=== PATIENT | female | born 1975 | race Hispanic/Latino ===

== ENCOUNTER 2020-03-04 20:20 | Emergency (ER) | payer BC ==
[2020-03-04] MEDS ORDERED: HYDROCODONE/APAP 10/325 TAB ONE (21:00)
[2020-03-04] MEDS ORDERED: KETOROLAC 30 MG/ML INJ ONE (21:01)
--- NOTE | 2020-03-04 22:28 | ER ---
Nurse's Notes [facility] Name: Nicol Infante Age: 44 yrs Sex: Female : 1975 Arrival Date: 03/04/2020 Time: 20:27 Bed 20 Private MD: Diagnosis: Pain in left shoulder-possible injury to rotator cuff Presentation: 03/04 20:36 Chief complaint: Patient states: i had a seizure last December at work and passed out had, mg2 my left shoulder was bruised that time. today i felt my left shoulder in hurting and my fingers are tingling. Coronavirus screen: Client denies travel out of the [place] in the last 14 days. At this time, the client does not indicate any symptoms associated with coronavirus-19. Ebola Screen: No symptoms or risks identified at this time. Initial Sepsis Screen: Does the patient meet any 2 criteria? No. Patient's initial sepsis screen is negative. Does the patient have a suspected source of infection? No. Patient's initial sepsis screen is negative. Risk Assessment: Do you want to hurt yourself or someone else?. Onset of symptoms was March 04, 2020. 20:36 Method Of Arrival: Ambulatory mg2 20:36 Acuity: ROSE 4 mg2 Historical: - Allergies: 20:38 No Known Allergies; mg2 - Home Meds: 20:38 Keppra 1,000 mg Oral tab [Active]; mg2 - PMHx: 20:38 Seizures; mg2 - PSHx: 20:38 None; mg2 - Immunization history:: Flu vaccine status is unknown. - Social history:: Smoking status: Patient denies any tobacco usage or history of. Patient uses alcohol, occasionally. Patient/guardian denies using street drugs, IV drugs. Screenin:55 Abuse screen: Denies threats or abuse. Nutritional screening: No deficits noted. ea Tuberculosis screening: No symptoms or risk factors identified. Fall Risk None identified. Assessment: 20:57 General: Appears uncomfortable, Behavior is appropriate for age. Pain: Complains of ea pain in anterior aspect of left shoulder. Neuro: Level of Consciousness is awake, alert, obeys commands. Cardiovascular: Patient's skin is warm and dry. Respiratory: Airway is patent Respiratory effort is even, unlabored, Respiratory pattern is regular, symmetrical. Derm: Skin is pink, warm \T\ dry. 21:42 Reassessment: Patient and/or family updated on plan of care and expected duration. Pain ea level reassessed. Patient is alert, oriented x 3, equal unlabored respirations, skin warm/dry/pink. 22:44 Reassessment: Patient and/or family updated on plan of care and expected duration. Pain ea level reassessed. Patient is alert, oriented x 3, equal unlabored respirations, skin warm/dry/pink. Discharge instruction given to patient, verbalized the understanding of instruction. Pt left ED ambulatory tolerating well. Family awaiting outside ED for transport home. Vital Signs: 20:36 BP 160 / 108; Pulse 80; Resp 18; Temp 98.3; Pulse Ox 100% on R/A; Weight 126.1 kg; mg2 Height 5 ft. 3 in. (160.02 cm); Pain 10/10; 21:42 BP 142 / 80; Pulse 78; Resp 18; Pulse Ox 98% ; ea 20:36 Body Mass Index 49.24 (126.10 kg, 160.02 cm) mg2 ED Course: 20:27 Patient arrived in ED. cf2 20:29 Torres Mullen, PRESLEY is PHCP. pm1 20:29 Kostas Camarena MD is Attending Physician. pm1 20:37 Triage completed. mg2 20:37 Arm band placed on. mg2 20:46 Giana Silver, THOMAS is Primary Nurse. ea 20:55 Patient has correct armband on for positive identification. Bed in low position. Call ea light in reach. Side rails up X2. 21:49 Shoulder Left (2 View) XRAY In Process Unspecified. EDMS 22:44 No provider procedures requiring assistance completed. Patient did not have IV access ea during this emergency room visit. Administered Medications: 20:53 Drug: TORadol 60 mg Route: IM; Site: right gluteus; ea 22:29 Follow up: Response: No adverse reaction ea 20:54 Drug: [place] 10 mg-325 mg 1 tabs {Note: RASS 0.} Route: PO; ea 22:29 Follow up: Response: No adverse reaction; Pain is decreased ea Outcome: 22:28 Discharge ordered by MD. pm1 22:44 Condition: stable ea 22:44 Discharge instructions given to patient, Instructed on discharge instructions, follow up and referral plans. medication usage, Demonstrated understanding of instructions, follow-up care, medications, Prescriptions given X 1. 22:44 Discharged to home ambulatory, with family. ea 22:45 Patient left the ED. gretchen Signatures: Dispatcher [employer] EDMS Torres Mullen, PRESLEY BUTT PRESSER pm1 Giana Silver RN RN Victor Manuel Carson RN RN [facility] [place] Evangelista Ly 2
--- NOTE | 2020-03-04 22:28 | EDPHYS ---
Physician Documentation [facility] Name: Nicol Infante Age: 44 yrs Sex: Female : 1975 Arrival Date: 03/04/2020 Time: 20:27 Bed 20 Private MD: ED Physician Kostas Camarena HPI: 03/04 20:41 This 44 yrs old Female presents to ER via Ambulatory with complaints of pm1 Shoulder Pain, Numbness. 20:41 The patient or guardian complains of pain. left shoulder. Context: resulted from a pm1 fall, The patient reports no decreased range of motion. The patient reports no obvious deformity. Onset: The symptoms/episode began/occurred 2 month(s) ago. Modifying factors: the symptoms are alleviated by remaining still, The symptoms are aggravated by lifting weight, movement. Associated signs and symptoms: Pertinent positives: Numbness in left arm Pertinent negatives: chest pain, shortness of breath. Severity of symptoms: in the emergency department the symptoms are unchanged. The patient has not recently seen a physician. Patient had a seizure two months ago and she fell on her left shoulder. Since then she has been having pain to her left shoulder and numbness to the left arm. Historical: - Allergies: 20:38 No Known Allergies; mg2 - Home Meds: 20:38 Keppra 1,000 mg Oral tab [Active]; mg2 - PMHx: 20:38 Seizures; mg2 - PSHx: 20:38 None; mg2 - Immunization history:: Flu vaccine status is unknown. - Social history:: Smoking status: Patient denies any tobacco usage or history of. Patient uses alcohol, occasionally. Patient/guardian denies using street drugs, IV drugs. ROS: 20:41 Constitutional: Negative for fever, chills, and weight loss, Cardiovascular: Negative pm1 for chest pain, palpitations, and edema, Respiratory: Negative for shortness of breath, cough, wheezing, and pleuritic chest pain, Abdomen/GI: Negative for abdominal pain, nausea, vomiting, diarrhea, and constipation, Back: Negative for injury and pain. 20:41 Skin: Negative for injury, rash, and discoloration. 20:41 MS/extremity: Positive for pain, of the anterior aspect of left shoulder, Negative for decreased range of motion, deformity. 20:41 Neuro: Positive for numbness, of the left arm, Negative for headache, weakness. Exam: 20:41 Constitutional: This is a well developed, well nourished patient who is awake, alert, pm1 and in no acute distress. Head/Face: Normocephalic, atraumatic. Neck: Trachea midline, no thyromegaly or masses palpated, and no cervical lymphadenopathy. Supple, full range of motion without nuchal rigidity, or vertebral point tenderness. No Meningismus. 20:41 Back: No spinal tenderness. No costovertebral tenderness. Full range of motion. Skin: Warm, dry with normal turgor. Normal color with no rashes, no lesions, and no evidence of cellulitis. 20:41 Cardiovascular: Exam negative for acute changes, Rate: normal, Rhythm: regular, Pulses: no pulse deficits are appreciated. 20:41 Respiratory: Exam negative for acute changes, respiratory distress, shortness of breath. 20:41 Musculoskeletal/extremity: Extremities: grossly normal except: noted in the tenderness to supraspinatus insertion point: There is no evidence of decreased ROM, deformity. 20:41 Neuro: Exam negative for acute changes, Orientation: is normal, Mentation: is normal, Motor: is normal, moves all fours. Vital Signs: 20:36 BP 160 / 108; Pulse 80; Resp 18; Temp 98.3; Pulse Ox 100% on R/A; Weight 126.1 kg; mg2 Height 5 ft. 3 in. (160.02 cm); Pain 10/10; 21:42 BP 142 / 80; Pulse 78; Resp 18; Pulse Ox 98% ; ea 20:36 Body Mass Index 49.24 (126.10 kg, 160.02 cm) mg2 MDM: 20:34 Patient medically screened. pm1 22:26 Data reviewed: vital signs. Data interpreted: Pulse oximetry: on room air is 98 %. pm1 Interpretation: normal. Counseling: I had a detailed discussion with the patient and/or guardian regarding: the historical points, exam findings, and any diagnostic results supporting the discharge/admit diagnosis, radiology results, the need for outpatient follow up, a orthopedic surgeon, MRI and further evaluation and treatment, to return to the emergency department if symptoms worsen or persist or if there are any questions or concerns that arise at home. 03/04 20:41 Order name: Shoulder Left (2 View) XRAY pm1 03/04 22:28 Order name: Sling; Complete Time: 22:43 pm1 Administered Medications: 20:53 Drug: TORadol 60 mg Route: IM; Site: right gluteus; ea 22:29 Follow up: Response: No adverse reaction ea 20:54 Drug: [place] 10 mg-325 mg 1 tabs {Note: RASS 0.} Route: PO; ea 22:29 Follow up: Response: No adverse reaction; Pain is decreased ea Disposition: 03/05 07:01 Co-signature as Attending Physician, Kostas Camarena MD I agree with the assessment and tw4 plan of care. Chart complete. Chart complete. Disposition: 03/04/20 22:28 Discharged to Home. Impression: Pain in left shoulder - possible injury to rotator cuff. - Condition is Stable. - Discharge Instructions: Rotator Cuff Injury, Shoulder Pain, How to Use a Sling. - Prescriptions for Tylenol- Codeine #3 300-30 mg Oral Tablet - take 2 tablets by ORAL route every 6 hours As needed; 20 tablet. - Medication Reconciliation Form, Thank You Letter, Antibiotic Education, Prescription Opioid Use, Work release form form. - Follow up: Emergency Department; When: As needed; Reason: Worsening of condition. Follow up: Private Physician; When: 2 - 3 days; Reason: Recheck today's complaints, Continuance of care, Re-evaluation by your physician. - Problem is new. - Symptoms have improved. Signatures: Dispatcher [employer] EDMS Torres Mullen, PRESLEY WELFARE MANAGER pm1 Giana Silver RN RN ea Wadley, Terrence, MD MD tw4 Victor Manuel Cavanaugh RN RN mg2 Corrections: (The following items were deleted from the chart) 03/04 22:29 22:28 03/04/2020 22:28 Discharged to Home. Impression: Pain in left shoulder. Condition pm1 is Stable. Forms are Medication Reconciliation Form, Thank You Letter, Antibiotic Education, Prescription Opioid Use. Follow up: Emergency Department; When: As needed; Reason: Worsening of condition. Follow up: Private Physician; When: 2 - 3 days; Reason: Recheck today's complaints, Continuance of care, Re-evaluation by your physician. Problem is new. Symptoms have improved. pm1 22:45 22:29 03/04/2020 22:28 Discharged to Home. Impression: Pain in left shoulder - possible ea injury to rotator cuff. Condition is Stable. Discharge Instructions: Shoulder Pain, How to Use a Sling, Rotator Cuff Injury. Forms are Medication Reconciliation Form, Thank You Letter, Antibiotic Education, Prescription Opioid Use. Follow up: Emergency Department; When: As needed; Reason: Worsening of condition. Follow up: Private Physician; When: 2 - 3 days; Reason: Recheck today's complaints, Continuance of care, Re-evaluation by your physician. Problem is new. Symptoms have improved. pm1
--- NOTE | 2020-03-05 08:08 | RAD REPORT ---
EXAM DESCRIPTION: RAD - Shoulder Left 2 View - 03/04/2020 9:49 pm CLINICAL HISTORY: PAIN, fall, trauma to left shoulder COMPARISON: Shoulder Left 2 View dated 09/30/2012 TECHNIQUE: Internal and external rotation views of the left shoulder were obtained. FINDINGS: There is no fracture or dislocation. Slight widening of the AC joint is similar to compari son. Degenerative changes are present along the undersurface the acromion at the head of the clavicle , progressive from 2013. Acromial humeral joint space reduced slightly. No soft tissue calcifications or suspicious soft tissue finding. 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 No fracture, dislocation or acute finding.
[2020-03-05 19:41] VITALS: TEMP 98.3
[2020-03-05 19:43] VITALS: BP 142/80; O2SAT 98
== END 2020-03-04 22:45 | disposition home or self-care (01) ==
LOC: ER 20:20
DX: M25.512 Pain in left shoulder (principal); G40.909 Epilepsy, unspecified, not intractable, without status epilepticus; W19.XXXA Unspecified fall, initial encounter; Y93.89 Activity, other specified; Y92.9 Unspecified place or not applicable
CPT/HCPCS: 96372; 99283

== ENCOUNTER 2020-11-10 13:01 | Emergency (ER) | payer BC, OTHER ==
--- OUTSIDE RECORDS SUMMARY | 2020-11-10 13:05 | XMS REPORT | Continuity of Care Document ---
:1975 [address] [facility] t Address [address] [place] [address] Care Team Providers Name Role Phone Pcp, Does Not Have A Primary Care Physician Jesus GUEVARA Attending Clinician Donna Triana MA Attending Clinician Unavailable Payers Payer Name Policy Type Policy Effective Date Expiration Date Sour ce Number AETNAAETNA [id number] [id number] [facility] dical /[facility] Problems Condition Condition Condition Status Onset Resolution Last Treating Co mments Source Name Details Category Date Date Treatment Clinician Date Stress Stress Disease Active Univers incontinen incontinen 4-11 it y of ce ce 00:00: [place] 00 [facility] Abnormal Abnormal Disease Active Unive rs uterine uterine 4-11 ity of bleeding bleeding 00:00: [place] (AUB) (AUB) 00 [facility] Allergies, Adverse Reactions, Alerts This patient has no known allergies or adverse reactions. Social History Social Habit Start Date Stop Date Quantity Comments Source Exposure to Not sure [facility] SARS-CoV-2 [facility] (event) [place] Tobacco use and 2020-11-02 2020-11-02 Never used Universit y of exposure 00:00:00 00:00:00 [facility] Alcohol intake 2020-11-02 2020-11-02 Current drinker Unive rsity of 00:00:00 00:00:00 of alcohol [facility] (finding) [place] Alcohol Comment 2020-10-04 2020-10-04 rarely Universit y of 00:00:00 00:00:00 [facility] Sex Ass[birth year] Universit y of 00:00:00 00:00:00 [facility] Smoking Status Start Date Stop Date Source Never smoker [facility] Medications Ordered Filled Start Stop Current Ordering Indication Dosage Frequency Signature Comments Components Source Medication Medication Date Date Medication? Clinician (SIG) Name Name herson Yes Abnormal .35mg Take 1 Univers ne 0.35 mg 5-06 uterine tablet by i ty of tablet 00:00: bleeding mouth [place] 00 (AUB) daily. [facility] noresergendro 2020- No Abnormal .35mg Take 1 Univers ne 0.35 mg 5-06 05-07 uterine tablet by ity of tablet 00:00: 00:00 bleeding mouth [place] 00 :00 (AUB) daily. Medical Branch norethindro 2020- No Abnormal .35mg Take 1 Univers ne 0.35 mg 5-06 05-07 uterine tablet by ity of tablet 00:00: 00:00 bleeding mouth [place] 00 :00 (AUB) daily. Medical Branch levETIRAcet Yes 1000mg Take 1,000 Univers am 1,000 mg 3-28 mg by ity of tablet 00:00: mouth 2 [place] (two) Medical times Branch daily. levETIRAcet Yes 1000mg Take 1,000 Univers am 1,000 mg 3-28 mg by ity of tablet 00:00: mouth 2 [place] (two) Medical times Branch daily. levETIRAcet Yes 1000mg Take 1,000 Univers am 1,000 mg 3-28 mg by ity of tablet 00:00: mouth 2 [place] (two) Medical times Branch daily. OXTELLAR XR Yes 1{tbl} Take 1 Un [place] 300 mg Tb24 1-22 tablet by ity of 00:00: mouth at [place] [address] bedtime. Medical Branch OXTELLAR XR Yes 1{tbl} Take 1 Un [place] 300 mg Tb24 1-22 tablet by ity of 00:00: mouth at [place] [address] bedtime. Medical Branch OXTELLAR XR Yes 1{tbl} Take 1 Un [place] 300 mg Tb24 1-22 tablet by ity of 00:00: mouth at [place] 00 bedtime. Medical Branch Vital Signs Vital Name Observation Time Observation Value Comments Source Systolic blood 2020-11-01 13:37:00 139 mm[Hg] Univer sity of pressure [facility] Diastolic blood 2020-11-01 13:37:00 81 mm[Hg] Unive rsity of [facility] Heart rate 2020-11-01 13:37:00 69 /min [facility] Body temperature 2020-11-01 13:37:00 36.61 [facility] rate 2020-11-01 13:37:00 18 /min [facility] Body height 2020-11-01 13:37:00 160 cm [facility] Body weight 2020-11-01 13:37:00 128.912 kg [facility] BMI 2020-11-01 13:37:00 50.34 kg/m2 [facility] Oxygen saturation in 2020-11-01 13:37:00 98 /min [facility] Arterial blood by [facility] Pulse oximetry Branch Procedures This patient has no known procedures. Plan of Care Planned Activity Planned Date Details Comments Source Future Scheduled 2023-10-05 Screening for [facility] Test 00:00:00 malignant neoplasm Medical B ranch of cervix (procedure) [code = 033493424] Future Scheduled 2023-10-05 Screening for [facility] Test 00:00:00 malignant neoplasm Medical [facility] of cervix (procedure) [code = [id number]] Future Scheduled 2023-10-05 Screening for [facility] Test 00:00:00 malignant neoplasm [facility] of cervix (procedure) [code = [id number]] Future Scheduled 2021-10-19 Screening for [facility] Test 00:00:00 malignant neoplasm [facility] of breast (procedure) [code = [id number]] Future Scheduled 2021-10-19 Screening for [facility] Test 00:00:00 malignant neoplasm Medical B [facility] of breast (procedure) [code = [id number]] Future Scheduled 2021-10-19 Screening for [facility] Test 00:00:00 malignant neoplasm Medical B [facility] of breast (procedure) [code = [id number]] Future Scheduled 2021-10-04 Depression screening [facility] [place] Test 00:00:00 (procedure) [code = Medical Branch [id number]] Future Scheduled 2021-10-04 Depression screening [facility] [place] Test 00:00:00 (procedure) [code = Medical Branch [id number]] Future Scheduled 2021-10-04 Depression screening [facility] [place] Test 00:00:00 (procedure) [code = Medical Branch [id number]] Future Scheduled 2021-02-27 INFLUENZA VACCINE [facility] [place] Test 00:00:00 (Season Ended) [code Medical Branch = INFLUENZA VACCINE (Season Ended)] Future Scheduled 2021-02-27 INFLUENZA VACCINE [facility] [place] Test 00:00:00 (Season Ended) [code Medical Branch = INFLUENZA VACCINE (Season Ended)] Future Scheduled 2021-02-27 INFLUENZA VACCINE Univer sity [facility] Test 00:00:00 (Season Ended) [code Medical Branch = INFLUENZA VACCINE (Season Ended)] Future Scheduled 1995-10-21 DTaP,Tdap,and Td Univers ity [facility] Test 00:00:00 Vaccines (1 - Tdap) Medical Branch [code = DTaP,Tdap,and Td Vaccines (1 - Tdap)] Future Scheduled 1995-10-21 DTaP,Tdap,and Td Univers ity [facility] Test 00:00:00 Vaccines (1 - Tdap) Medical Branch [code = DTaP,Tdap,and Td Vaccines (1 - Tdap)] Future Scheduled 1995-10-21 DTaP,Tdap,and Td Univers ity [facility] Test 00:00:00 Vaccines (1 - Tdap) Medical Branch [code = DTaP,Tdap,and Td Vaccines (1 - Tdap)] Future Scheduled 1994 Hepatitis C [facility] Test 00:00:00 screening Medical Branch (procedure) [code = [id number]] Future Scheduled 1994 Hepatitis C [facility] Test 00:00:00 screening Medical Branch (procedure) [code = [id number]] Future Scheduled 1994 Hepatitis C [facility] Test 00:00:00 screening Medical Branch (procedure) [code = [id number]] Future Scheduled 1992 SARS-CoV-2 [facility] Test 00:00:00 (COVID-19) Vaccine Medical [facility] (1) [code = SARS-CoV-2 (COVID-19) Vaccine (1)] Future Scheduled 1992 SARS-CoV-2 [facility] Test 00:00:00 (COVID-19) Vaccine Medical B [place] (1) [code = SARS-CoV-2 (COVID-19) Vaccine (1)] Future Scheduled 1992 SARS-CoV-2 [facility] Test 00:00:00 (COVID-19) Vaccine Medical B [place] (1) [code = SARS-CoV-2 (COVID-19) Vaccine (1)] Encounters Start End Encounter Admission Attending Care Care Encounter Source Date/Time Date/Time Type Type Clinicians Facility Department ID 2020-11-01 2020-11-01 Patient JUAN Triana [place] [id number] 00:00:00 00:00:00 Secure Msg Norma Thompson [place] [id number] Pediatric [id number] Clinic [id number] 2020-10-19 2020-10-19 Hospital Stacy Lee [facility] [id number] 09:17:31 23:59:00 Encounter [place]aci [id number] [place] [id number] [place] [id number] 2020-10-19 2020-10-19 Office Stacy Lee [facility] [id number] 14:48:12 15:18:12 Visit [place] [id number] [place] [id number] Profess [id number] [facility] Results This patient has no known results.
[2020-11-10] MEDS ORDERED: IBUPROFEN 400 MG TAB ONE ×2 (15:23→15:28)
--- NOTE | 2020-11-10 17:00 | RAD REPORT ---
EXAM DESCRIPTION: RAD - Shoulder Right 2 View - 11/10/2020 4:12 pm CLINICAL HISTORY: Right shoulder pain FINDINGS: No fracture or dislocation is seen.
--- NOTE | 2020-11-10 17:02 | RAD REPORT ---
EXAM DESCRIPTION: RAD - Knee Right 3 View - 11/10/2020 4:12 pm CLINICAL HISTORY: Right knee pain status post injury FINDINGS: No fracture or dislocation is seen. If patient continues to have symptoms to suggest an oc cult fracture, ligamentous or meniscal injury then MRI would be recommended
--- NOTE | 2020-11-10 17:29 | EDPHYS ---
Physician Documentation [facility] Name: Nicol Infante Age: 45 yrs Sex: Female : 1975 Arrival Date: 11/10/2020 Time: 13:06 Bed 13 Private MD: ED Physician Arnel Keller HPI: 11/10 14:31 This 45 yrs old Female presents to ER via Ambulatory with complaints of Fall jmm Injury. 14:31 Details of fall: The patient fell from an upright position. Onset: The symptoms/episode jmm began/occurred acutely, just prior to arrival. Associated injuries: The patient sustained right shoulder, right knee. This is a 45 year old female with a history of epilepsy that presents to the ED with complaints of right knee pain and right shoulder pain after slipping and falling yesterday. Denies head injury, denies other injury. . 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 Flu vaccine is not up to date. - Social history:: Smoking status: Patient/guardian denies using tobacco. ROS: 14:31 Constitutional: Negative for fever, chills, and weight loss, Cardiovascular: Negative jmm for chest pain, palpitations, and edema, Respiratory: Negative for shortness of breath, cough, wheezing, and pleuritic chest pain. 14:31 MS/extremity: Positive for injury or acute deformity, pain. 14:31 All other systems are negative. Exam: 14:31 Constitutional: This is a well developed, well nourished patient who is awake, alert, jmm and in no acute distress. Head/Face: atraumatic. Eyes: EOMI, no conjunctival erythema appreciated ENT: Moist Mucus Membranes Neck: Trachea midline, Supple Chest/axilla: Normal chest wall appearance and motion. Cardiovascular: Regular rate and rhythm. No edema appreciated Respiratory: Normal respirations, no respiratory distress appreciated Abdomen/GI: Non distended, soft Back: Normal ROM Skin: General appearance color normal 14:31 Neuro: Awake and alert, normal gait Psych: Behavior is normal, Mood is normal, Patient is cooperative and pleasant 14:31 Musculoskeletal/extremity: FROM noted to the right shoulder pain on palpation, right knee pain on palpation, compartments are soft NVI. Vital Signs: 13:23 BP 157 / 93; Pulse 71; Resp 18; Temp 97.9; Pulse Ox 100% on R/A; Weight 127.01 kg (R); aa5 Height 5 ft. 3 in. (160.02 cm) (R); Pain 9/10; 13:23 Body Mass Index 49.60 (127.01 kg, 160.02 cm) aa5 MDM: 14:31 Patient medically screened. [facility] 17:27 Data reviewed: vital signs, nurses notes. Counseling: I had a detailed discussion with [facility] the patient and/or guardian regarding: the historical points, exam findings, and any diagnostic results supporting the discharge/admit diagnosis, radiology results, the need for outpatient follow up, to return to the emergency department if symptoms worsen or persist or if there are any questions or concerns that arise at home. 11/10 14:55 Order name: Knee Right 3 View XRAY; Complete Time: 17:15 [facility] 11/10 14:55 Order name: Shoulder Right (2 View) XRAY; Complete Time: 17:00 [facility] Administered Medications: 15:12 Drug: Ibuprofen 800 mg Route: PO; jd3 18:45 Follow up: Response: No adverse reaction zb Disposition: 11/11 06:56 Co-signature as Attending Physician, Arnel Keller MD I agree with the assessment and [facility] plan of care. Disposition: 11/10/20 17:28 Discharged to Home. Impression: Internal derangement of knee, Strain of unspecified muscle, fascia and tendon at shoulder and upper arm level. - Condition is Stable. - Discharge Instructions: Knee Pain. - Prescriptions for orphenadrine citrate 100 mg Oral Tablet Sustained Release - take 1 tablet by ORAL route 2 times per day As needed; 20 tablet. - Medication Reconciliation Form, Thank You Letter, Antibiotic Education, Prescription Opioid Use, Work release form form. - Follow up: Private Physician; When: 2 - 3 days; Reason: Recheck today's complaints, Continuance of care, Re-evaluation by your physician. Follow up: Yfn Rascon MD; When: 2 - 3 days; Reason: Recheck today's complaints, Continuance of care, Re-evaluation by your physician. Signatures: Dispatcher [employer] Arnel Zepeda MD MD cha Mickail, Joel, PA PA jmm Calderon, Audri, RN RN aa5 Jairo Desai RN RN jd3 Patience An RN RN zb Corrections: (The following items were deleted from the chart) 11/10 17:29 17:28 11/10/2020 17:28 Discharged to Home. Impression: Internal derangement of knee; jmm Strain of unspecified muscle, fascia and tendon at shoulder and upper arm level. Condition is Stable. Forms are Medication Reconciliation Form, Thank You Letter, Antibiotic Education, Prescription Opioid Use. Follow up: Private Physician; When: 2 - 3 days; Reason: Recheck today's complaints, Continuance of care, Re-evaluation by your physician. [facility] 18:47 17:29 11/10/2020 17:28 Discharged to Home. Impression: Internal derangement of knee; zb Strain of unspecified muscle, fascia and tendon at shoulder and upper arm level. Condition is Stable. Discharge Instructions: Knee Pain. Prescriptions for orphenadrine citrate 100 mg Oral Tablet Sustained Release - take 1 tablet by ORAL route 2 times per day As needed; 20 tablet. and Forms are Medication Reconciliation Form, Thank You Letter, Antibiotic Education, Prescription Opioid Use. Follow up: Private Physician; When: 2 - 3 days; Reason: Recheck today's complaints, Continuance of care, Re-evaluation by your physician. Follow up: Dr. Yfn Rascon; When: 2 - 3 days; Reason: Recheck today's complaints, Continuance of care, Re-evaluation by your physician. [facility] 18:53 18:47 11/10/2020 17:28 Discharged to Home. Impression: Internal derangement of knee; jd3 Strain of unspecified muscle, fascia and tendon at shoulder and upper arm level. Condition is Stable. Discharge Instructions: Knee Pain. Prescriptions for orphenadrine citrate 100 mg Oral Tablet Sustained Release - take 1 tablet by ORAL route 2 times per day As needed; 20 tablet. and Forms are Medication Reconciliation Form, Thank You Letter, Antibiotic Education, Prescription Opioid Use, Work release form. Follow up: Private Physician; When: 2 - 3 days; Reason: Recheck today's complaints, Continuance of care, Re-evaluation by your physician. Follow up: Dr. Yfn Rascon; When: 2 - 3 days; Reason: Recheck today's complaints, Continuance of care, Re-evaluation by your physician. zb
--- NOTE | 2020-11-10 17:29 | ER ---
Nurse's Notes [facility] Name: Nicol Infante Age: 45 yrs Sex: Female : 1975 Arrival Date: 11/10/2020 Time: 13:06 Bed 13 Private MD: Diagnosis: Internal derangement of knee;Strain of unspecified muscle, fascia and tendon at shoulder and upper arm level Presentation: 11/10 13:22 Chief complaint: Patient states: "I fell yesterday at work and my knee and my right arm aa5 are hurting" Patient states that she fell from standing position when she tripped over some boxes and landed on the right side. Care prior to arrival: None. Mechanism of Injury: Fall from standing position. 13:22 Acuity: ROSE 4 aa5 13:22 Method Of Arrival: Ambulatory aa5 13:23 Coronavirus screen: Client denies travel out of the [place] in the last 14 days. At this aa5 time, the client does not indicate any symptoms associated with coronavirus-19. Ebola Screen: Patient denies travel to an Ebola-affected area in the 21 days before illness onset. Initial Sepsis Screen: Does the patient meet any 2 criteria? No. Patient's initial sepsis screen is negative. Does the patient have a suspected source of infection? No. Patient's initial sepsis screen is negative. Risk Assessment: Do you want to hurt yourself or someone else? Patient reports no desire to harm self or others. Onset of symptoms was November 09, 2020. Triage Assessment: 13:25 General: Appears in no apparent distress. comfortable, Behavior is calm, cooperative, aa5 appropriate for age. Pain: Complains of pain in right bicep, dorsal aspect of right forearm, right tricep, palmar aspect of right forearm and lateral aspect of right knee. Neuro: Level of Consciousness is awake, alert, obeys commands. Cardiovascular: Patient's skin is warm and dry. Respiratory: Airway is patent Respiratory effort is even, unlabored, Respiratory pattern is regular, symmetrical. Derm: Skin is pink, warm \\T\\ dry. normal. Musculoskeletal: Range of motion: limited in right shoulder and right knee. 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 Flu vaccine is not up to date. - Social history:: Smoking status: Patient/guardian denies using tobacco. Screenin:34 Abuse screen: Denies threats or abuse. Nutritional screening: No deficits noted. jd3 Tuberculosis screening: No symptoms or risk factors identified. Fall Risk Ambulatory Aid- None/Bed Rest/Nurse Assist (0 pts). Gait- Normal/Bed Rest/Wheelchair (0 pts) Mental Status- Oriented to own ability (0 pts). Total Messer Fall Scale indicates No Risk (0-24 pts). Assessment: 14:25 General: Appears in no apparent distress. uncomfortable, Behavior is calm, cooperative, jd3 appropriate for age. Pain: Complains of pain in right hip and right shoulder Quality of pain is described as aching, tender. Neuro: Level of Consciousness is awake, alert, obeys commands, Oriented to person, place, time, situation. Cardiovascular: Denies chest pain, Capillary refill < 3 seconds Patient's skin is warm and dry. Respiratory: Airway is patent Respiratory effort is even, unlabored, Respiratory pattern is regular, symmetrical, Denies cough, shortness of breath. GI: No signs and/or symptoms were reported involving the gastrointestinal system. : No signs and/or symptoms were reported regarding the genitourinary system. EENT: No signs and/or symptoms were reported regarding the EENT system. Derm: Skin is intact, Skin is dry, Skin is normal, Skin temperature is warm. Musculoskeletal: Circulation, motion, and sensation intact. Range of motion: intact in all extremities. 15:35 Reassessment: Patient appears in no apparent distress at this time. No changes from jd3 previously documented assessment. Patient and/or family updated on plan of care and expected duration. Pain level reassessed. Patient is alert, oriented x 3, equal unlabored respirations, skin warm/dry/pink. 16:30 Reassessment: Patient appears in no apparent distress at this time. Patient and/or zb family updated on plan of care and expected duration. Pain level reassessed. Patient is alert, oriented x 3, equal unlabored respirations, skin warm/dry/pink. 17:30 Reassessment: Patient appears in no apparent distress at this time. Patient and/or zb family updated on plan of care and expected duration. Pain level reassessed. Patient is alert, oriented x 3, equal unlabored respirations, skin warm/dry/pink. 18:43 Reassessment: Patient appears in no apparent distress at this time. Patient and/or zb family updated on plan of care and expected duration. Pain level reassessed. Patient is alert, oriented x 3, equal unlabored respirations, skin warm/dry/pink. patient discharge instructions given. splint placed on . Vital Signs: 13:23 BP 157 / 93; Pulse 71; Resp 18; Temp 97.9; Pulse Ox 100% on R/A; Weight 127.01 kg (R); aa5 Height 5 ft. 3 in. (160.02 cm) (R); Pain 9/10; 13:23 Body Mass Index 49.60 (127.01 kg, 160.02 cm) aa5 ED Course: 13:06 Patient arrived in ED. as 13:23 Triage completed. aa5 13:25 Arm band placed on Patient placed in waiting room. aa5 14:19 sIaac Camilo PA is PHCP. [facility] 14:19 Arnel Keller MD is Attending Physician. jm 14:25 Jairo Desai, THOMAS is Primary Nurse. jd3 15:35 Patient has correct armband on for positive identification. Bed in low position. Call jd3 light in reach. Side rails up X 1. Adult w/ patient. 16:12 Knee Right 3 View XRAY In Process Unspecified. EDMS 16:12 Shoulder Right (2 View) XRAY In Process Unspecified. EDMS 17:28 Yfn Rascon MD is Referral Physician. jm 18:43 No provider procedures requiring assistance completed. Patient did not have IV access zb during this emergency room visit. Administered Medications: 15:12 Drug: Ibuprofen 800 mg Route: PO; jd3 18:45 Follow up: Response: No adverse reaction zb Outcome: 17:28 Discharge ordered by . jmm 18:43 Discharged to home ambulatory. zb 18:43 Condition: stable 18:43 Discharge instructions given to patient, Instructed on discharge instructions, follow up and referral plans. medication usage, Demonstrated understanding of instructions, follow-up care, medications, Prescriptions given X 1. 18:47 Patient left the ED. brandon 18:53 Patient left the ED. jemima Signatures: Dispatcher [employer] EDMS Isaac Camilo PA PA jmm Martinez, Amelia as Calderon, Audri RN RN aa5 Jairo Desai RN RN Patience Orellana RN RN zb
[2020-11-10 18:53] VITALS: BP 157/93; TEMP 97.9; O2SAT 100
== END 2020-11-10 18:53 | disposition home or self-care (01) ==
LOC: ER 13:01
DX: M23.91 Unspecified internal derangement of right knee (principal); S46.911A Strain of unspecified muscle, fascia and tendon at shoulder and upper arm level, right arm, initial encounter; W01.0XXA Fall on same level from slipping, tripping and stumbling without subsequent striking against object, initial encounter; G40.909 Epilepsy, unspecified, not intractable, without status epilepticus
CPT/HCPCS: 99283

== ENCOUNTER 2021-02-13 05:51 | Day surgery (SDC) | payer OTHER ==
[2021-02-13 06:09] LABS: Specific Gravity 1.025 (1.005-1.030)
[2021-02-13] MEDS ORDERED: Ringers Lactate 1,000 ML IV ONE ×2 (06:30→09:06)
[2021-02-13] MEDS ORDERED: CEFAZOLIN/SWI 1gm 1 GM/10 ML SYR ONE ×2 (06:31)
[2021-02-13] MEDS ORDERED: MIDAZOLAM HCL 2 MG/2 ML INJ ONE (06:42)
[2021-02-13] MEDS ORDERED: LIDOCAINE 1% MPF 5 ML VIAL ONE (06:42)
[2021-02-13] MEDS ORDERED: NS 0.9% VIAL 10 ML ONE ×2 (06:42→08:55)
[2021-02-13] MEDS ORDERED: FENTANYL CITR 100 MCG/2 ML ONE (06:42)
[2021-02-13] MEDS ORDERED: dexAMETHasone 10 MG/ML VIAL ONE ×2 (06:42→07:33)
[2021-02-13] MEDS ORDERED: ROPLVACAINE HCL 40 ML ONE (06:43)
[2021-02-13] MEDS ORDERED: KETOROLAC 30 MG/ML INJ ONE (07:33)
[2021-02-13] MEDS ORDERED: LIDOCAINE 2% MPF 5 ML VIAL ONE (07:33)
[2021-02-13] MEDS ORDERED: propofoL 200 MG/20 ML VIAL IV ONE (07:33)
[2021-02-13] MEDS ORDERED: ONDANSETRON 4 MG/2 ML VIAL ONE (07:34)
[2021-02-13] MEDS ORDERED: ROCURONIUM 50 MG/5 ML VIAL IV ONE (07:34)
[2021-02-13] MEDS ORDERED: VECURONIUM 10 MG/VIAL IV ONE (08:55)
[2021-02-13] MEDS ORDERED: NEOSTIGMINE 1 MG/ML -5 ML ONE (09:56)
[2021-02-13] MEDS ORDERED: GLYCOPYRROLATE 0.2 MG/ML SYR ONE (09:56)
[2021-02-13] MEDS: HYDROMORPHONE HCL 1 MG/ML INJ ONE ×2 (10:02→10:10)
[2021-02-13 10:26] VITALS: O2SAT 96
[2021-02-13] MEDS ORDERED: PROMETHAZINE INJ 25 MG/ML AMP ONE (10:27)
[2021-02-13] MEDS ORDERED: HYDROCODONE/APAP 10/325 TAB ONE (11:41)
--- NOTE | 2021-02-13 11:58 | OP ---
Date of Procedure: 02/13/2021 Surgeon: Yunior Lassiter MD Preoperative Diagnosis: Right shoulder pain with probable rotator cuff tear as well as acromioclavic ular arthritis and impingement. Postoperative Diagnoses: 1.Some Fraying of the biceps anchor. 2.Rotator cuff tear. 3.Subacromial impingement. 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 Procedures: 1.Arthroscopy with limited debridement. 2.Mini open subacromial decompression with distal clavicle resection as well as repair of rotator cu ff. Estimated Blood Loss: 20 mL. Complications: No complications. Pathology Specimens: No pathology specimens. Indications For Operation: The patient is a 45-year-old female, who has had significant pain in her shoulder for some time. This persisted despite conservative measures and she has an MRI, which demon strates significant shoulder pathology. Risks, benefits, and alternatives to different methods of tr eating this have been discussed with the patient. She says she understands things as presented and w ishes to proceed. Procedure In Detail: The patient was taken to the operating room and placed in supine position. Gen eral anesthesia was obtained by staff. Following this, she was then placed in a beach chair position where she was appropriately positioned by Anesthesia. Her right upper extremity was then prepped an d draped in usual sterile fashion for arthroscopy. This was followed by placement of a posterior art hroscopy portal, which was made atraumatically with 1 pass. The shoulder was then examined. There w as found to be significant undersurface fraying as well as synovitis. The biceps tendon itself appea red to be doing very well with no sign of problem. A standard anterior portal was then made for plac ement of a shaver. The undersurface of the rotator cuff was gently debrided as well as driven some s ynovial tissue. The labrum appeared to be intact and again the biceps appeared fine. The posterior portal was then stapled and all equipment and gloves were changed as it was re-prepped. After this, a standard incision was then taken down carefully through the skin and soft tissues. Meticulous hemo stasis being maintained using Bovie electrocautery. This leads down to the deltoid after significant amount of adipose tissue. The deltoid was then removed from the leading edge of the acromion using Bovie. A Charnley was then placed under the acromion and anterior acromioplasty was then performed. It did not appear to be significantly hooked after this and the rasp was gently used. Attention was then turned to the clavicle and it was found to have quite a bit of arthritis. The intervening mate rial between the clavicle and the acromion was removed, and a saw was then used to perform a distal c laviculectomy, which was then removed using a rongeur. The inferior ligaments are untouched and chuck ined intact. The arm was then brought through adduction and there was found to be no impingement of the clavicle and acromion. After this, attention was then turned to the rotator cuff itself and did appear to have some tear, although not as much as I actually expected it would have. It was very gen erously explored using a rongeur and a Juggernaut was then placed in standard fashion and placed into the rotator cuff for support for probable small full thickness or partial thickness tear, which had been seen in the undersurface. After this, the wound was irrigated and the deltoid was repaired back to the acromion via bone tunnels. This was then oversewn at both the clavicle and the acromion. Th e skin was then closed and the patient was placed in an Aquacel dressing and immobilizer, awakened, a nd taken to recovery room in good condition. No complications. /ERNESTINAL Voice ID: [id number] Report ID: [id number]
[2021-02-13 12:32] VITALS: BP 132/76; TEMP 96
== END 2021-02-13 12:00 | disposition home or self-care (01) ==
LOC: OR 05:51
PROVIDERS: ATTEND Orthopaedic Surgery
PROC: 0RBJ4ZZ Excision of Right Shoulder Joint, Percutaneous Endoscopic Approach (ICD-10-PCS; 2021-02-13)
PROC: 0PB90ZZ Excision of Right Clavicle, Open Approach (ICD-10-PCS; 2021-02-13)
PROC: 0LQ14ZZ Repair Right Shoulder Tendon, Percutaneous Endoscopic Approach (ICD-10-PCS; principal; 2021-02-13 07:30)
PROC: 0RNJ4ZZ Release Right Shoulder Joint, Percutaneous Endoscopic Approach (ICD-10-PCS; 2021-02-13 07:30)
DX: M75.101 Unspecified rotator cuff tear or rupture of right shoulder, not specified as traumatic (principal); M25.811 Other specified joint disorders, right shoulder; M19.011 Primary osteoarthritis, right shoulder; Z20.822 Contact with and (suspected) exposure to COVID-19
CPT/HCPCS: 93005; 81025; 29827; 29826; 29822; 23120; U0003; J2250; J2405; J0690; J1100; J1170; J2550; J2704; J2710; J2795; J3010; J7120